=== PATIENT | male | born 1970 | race Caucasian/White ===

== ENCOUNTER → 2017-06-04 | Day surgery (SDC) | payer OTHER ==
[~2017-06-04] VITALS: Ht 180.3 cm; Wt 88.5 kg
--- NOTE | 2017-06-04 10:56 | Operative Report ---
Operative/Inv Procedure Report Surgery Date: 06/04/17 Name of Procedure: Right knee arthroscopy, partial medial meniscectomy, chondroplasty trochlea Pre-Operative Diagnosis: Right knee medial meniscus tear Post-Operative Diagnosis: Right knee medial meniscus tear Estimated Blood Loss: [email or web address] Surgeon/Sales Commissions Analyst: EVELIO PALMA MD Anesthesia: laryngeal mask airway Complications: None Condition: Stable to PACU Operative Indication: This is a 47-year-old male with medial right knee pain. MRI showed a displaced meniscus tear. Risks and benefits of the procedure were discussed with the patient at length. Risks include but are not limited to nerve damage, muscle damage, infection, blood loss, blood clots, pulmonary embolus, and even . The patient agreed to the above risks and elected to proceed with surgery. Operative/Procedure Note Note: The patient was placed supine on the operating room table. A tourniquet was applied. The lower extremity prepped and draped in normal sterile fashion. A timeout was performed before the incision. The site marking was visualized before incision. After the leg was prepped and draped, an Esmarch was used to exsanguinate the extremity. The tourniquet was inflated. A standard inferolateral portal was established with an 11 blade. The camera was inserted. A medial portal was established with a spinal needle and an 11 blade. The diagnostic arthroscopy was then performed which showed the above findings. A probe was used to reduce the displaced tear of the body and posterior horn of the medial meniscus. A combination of a straight biter as well as a shaver was used to debride the meniscus back to a stable rim. The camera was switched to the medial portal and the shaver was brought in through the lateral portal. Further debridement was then performed at the junction of the body and posterior horn. The shaver was then used to create debride the trochlea back to a stable rim of cartilage. The knee was copiously irrigated. The portal sites were closed with 3-0 nylon suture in a simple interrupted fashion. The knee was injected with 10 mL of 0.25% Marcaine with epinephrine. A dry sterile dressing was applied and the patient was transferred to PACU in stable condition. Findings: Displaced tear of the medial meniscus at the junction of the body and posterior horn. Medial compartment articular cartilage with grade 1 chondral softening. ACL intact. PCL intact. Lateral compartment articular cartilage intact. Lateral meniscus intact. Grade 2 chondral changes of the undersurface of the patella. Grade 3 and grade 4 chondral changes of the trochlea. No loose bodies noted.
== END ==
LOC: STS 03:01
DX: S83.231A Complex tear of medial meniscus, current injury, right knee, initial encounter (principal); X58.XXXA Exposure to other specified factors, initial encounter
CPT/HCPCS: J0690; J2250